=== PATIENT | female | born 1975 | race Caucasian/White ===

== ENCOUNTER 2018-07-02 14:10 | Outpatient (CLI) | payer OTHER | END 2018-07-02 14:21 | disposition home or self-care (01) | LOC: SONOGRAMA 14:10 | DX: N60.11 Diffuse cystic mastopathy of right breast (principal); N60.12 Diffuse cystic mastopathy of left breast ==

== ENCOUNTER 2020-05-03 14:07 | Emergency (ER) | payer OTHER ==
[~2020-05-03] VITALS: Ht 165.1 cm; Wt 54.4 kg
[2020-05-03] MEDS ORDERED: MECLIZINE HCL25 MG PO (18:13)
[2020-05-03] MEDS ORDERED: PEPCID AC20 MG PO (18:13)
[2020-05-03] MEDS ORDERED: ONDANSETRON ODT4 MG SL (18:13)
[2020-05-07] MEDS ORDERED: TYLENOL325 MG (12:02)
== END 2020-05-03 19:32 | disposition home or self-care (01) ==
LOC: ER 14:07
DX: R42 Dizziness and giddiness (principal); R11.2 Nausea with vomiting, unspecified; R55 Syncope and collapse; Z03.818 Encounter for observation for suspected exposure to other biological agents ruled out

== ENCOUNTER 2020-05-11 15:39 | Outpatient (CLI) | payer OTHER ==
[~2020-05-11 15:39] MED LIST: MECLIZINE HCL25 MG PO; ONDANSETRON ODT4 MG SL; PEPCID AC20 MG PO; TYLENOL325 MG
== END 2020-05-15 12:21 | disposition home or self-care (01) ==
LOC: OFIC 805 15:39
PROVIDERS: ATTEND Otolaryngology
DX: R42 Dizziness and giddiness (principal)